=== PATIENT | female | born 1950 | race Caucasian/White ===

== ENCOUNTER → 2016-08-11 | Outpatient (CLI) | payer MEDICARE, BC ==
[~2016-08-11] MED LIST: ASCO500T8 PO; ASPI325T4 PO; CALC500T47 PO; GADOBUTROL 7.5 MMOL/7.5 ML PFS ONE; HYDR-3240 PO; HYDR-3307 PO; LACT1CAP37 PO; MAGN500C PO; MULT-658 PO; OMEG-14 PO; PLAN450T PO; VITA400C14 PO
== END | disposition home or self-care (01) ==
LOC: RAD 10:19
PROVIDERS: ATTEND Otolaryngology
DX: G93.9 Disorder of brain, unspecified (principal); R90.82 White matter disease, unspecified; J34.1 Cyst and mucocele of nose and nasal sinus; H90.3 Sensorineural hearing loss, bilateral
CPT/HCPCS: 70553; A9585

== ENCOUNTER → 2018-02-25 | Outpatient (CLI) | payer MEDICARE, BC ==
[~2018-02-25] MED LIST changes: +ASPI-496 PO; +ASPI325T17 PO; -ASPI325T4 PO; -CALC500T47 PO; +CALC500T51 PO; -GADOBUTROL 7.5 MMOL/7.5 ML PFS ONE; -MAGN500C PO; +MAGN500C9 PO; +MELA3TAB2 PO; +UBID100C41 PO
[2018-02-25 12:33] LABS: MICROSCOPIC NOT IND
[2018-02-25 12:39] LABS: ANION GAP 4 mmol/L (5-15); CHLORIDE 107 mmol/L (98-107); CREATININE 0.78 mg/dL (0.55-1.02); CULTURE INDICATED? NO
[2018-02-25 12:44] LABS: BASOPHILS # (AUTO) 0.03 x10^3/uL (0-0.1); BASOPHILS % (AUTO) 1 % (0-1); EOSINOPHILS # (AUTO) 0.14 x10^3/uL (0-0.4); EOSINOPHILS % (AUTO) 3 % (1-7); LYMPHOCYTES # (AUTO) 1.75 x10^3/uL (1-3.4); LYMPHOCYTES % (AUTO) 34 % (22-44); MD NO; MEAN CORPUSCULAR HEMOGLOBIN 31.4 pg (27.0-34.8); MEAN CORPUSCULAR HGB CONC 34.3 g/dL (32.4-35.8); MEAN CORPUSCULAR VOLUME 91.7 fL (80-100); MEAN PLATELET VOLUME 8.5 fL (7.4-10.4); MONOCYTES # (AUTO) 0.51 x10^3/uL (0.2-0.8); MONOCYTES % (AUTO) 10 % (2-9); NEUTROPHILS # (AUTO) 2.79 x10^3/uL (1.8-6.8); NEUTROPHILS % (AUTO) 53 % (42-75); PLATELET COUNT 229 x10^3/uL (130-400); RED BLOOD COUNT 4.45 x10^6/uL (3.82-5.3); RED CELL DISTRIBUTION WIDTH 13.5 % (9.6-15.2)
== END | disposition home or self-care (01) ==
LOC: STAR 11:12
PROVIDERS: ATTEND Orthopaedic Surgery
DX: Z01.818 Encounter for other preprocedural examination (principal); M17.11 Unilateral primary osteoarthritis, right knee
CPT/HCPCS: 36415; 80048; 81003; 85025; 87081; 93005